=== PATIENT | male | born 1985 ===

== ENCOUNTER → 2018-02-04 11:17 | Outpatient (CLI) | payer OTHER | END | disposition home or self-care (01) | LOC: LAB 11:17 | DX: Z01.818 Encounter for other preprocedural examination (principal); K42.9 Umbilical hernia without obstruction or gangrene ==

== ENCOUNTER 2018-02-04 12:30 | Outpatient (CLI) | payer OTHER | END 2018-02-04 15:00 | disposition home or self-care (01) | LOC: RAD 12:30 | DX: Z01.818 Encounter for other preprocedural examination (principal); K42.9 Umbilical hernia without obstruction or gangrene ==

== ENCOUNTER 2018-02-16 05:40 | Day surgery (SDC) | payer OTHER ==
[2018-02-16] MEDS ORDERED: MIRALAX17 GM PO (13:27)
[2018-02-16] MEDS ORDERED: PERCOCET 5-3251 EACH PO (13:29)
[2018-02-16] MEDS ORDERED: NEURONTIN300 MG PO (13:47)
== END 2018-02-16 14:15 | disposition home or self-care (01) ==
LOC: CIR.AMB 05:40
DX: K42.0 Umbilical hernia with obstruction, without gangrene (principal)

== ENCOUNTER 2019-01-14 19:26 | Inpatient (IN) | payer OTHER ==
[~2019-01-14] VITALS: Ht 188 cm; Wt 99.8 kg
[~2019-01-14 19:26] MED LIST: MIRALAX17 GM PO; NEURONTIN300 MG PO; PERCOCET 5-3251 EACH PO
[2019-01-17] MEDS ORDERED: PERCOCET 5-3251 EACH PO (07:33)
== END 2019-01-17 08:27 | disposition home or self-care (01) | DRG 343 ==
LOC: ER 19:26 → SURH 01-15 07:15
PROVIDERS: ADMIT Surgery
PROC: BW21ZZZ Computerized Tomography (CT Scan) of Abdomen and Pelvis (ICD-10-PCS; 2019-01-15)
PROC: 0DTJ4ZZ Resection of Appendix, Percutaneous Endoscopic Approach (ICD-10-PCS; principal; 2019-01-15 08:00)
DX: K35.890 Other acute appendicitis without perforation or gangrene (principal); I10 Essential (primary) hypertension

== ENCOUNTER 2019-08-18 13:37 | Emergency (ER) | payer OTHER ==
[~2019-08-18] VITALS: Ht 182.9 cm; Wt 100.7 kg
== END 2019-08-18 17:40 | disposition home or self-care (01) ==
LOC: ER 13:37
DX: R55 Syncope and collapse (principal); R42 Dizziness and giddiness

== ENCOUNTER 2023-02-10 08:49 | Emergency (ER) | payer OTHER ==
[~2023-02-10] VITALS: Ht 188 cm; Wt 99.8 kg
[2023-02-10] MEDS ORDERED: AMOX-CLAV 875-1 EACH PO (09:31)
== END 2023-02-10 09:57 | disposition home or self-care (01) ==
LOC: ER 08:49
DX: S71.152A Open bite, left thigh, initial encounter (principal); W54.0XXA Bitten by dog, initial encounter; Y93.89 Activity, other specified; Y92.89 Other specified places as the place of occurrence of the external cause